=== PATIENT | male | born 1990 | race Caucasian/White ===

== ENCOUNTER → 2016-08-05 | Outpatient (CLI) | payer BC ==
[~2016-08-05] MED LIST: ONDA4TAB7 SL
--- NOTE | 2016-08-05 16:28 | DIAGNOSTIC IMAGING REPORT ---
NECK ULTRASOUND CLINICAL HISTORY: Lymphadenopathy. COMPARISON STUDY: None TECHNIQUE: Sonography of the left supraclavicular region at site of palpable abnormalities was performed. FINDINGS: Several left supraclavicular nodules are suggestive of morphologically benign lymph nodes. No enlarged cervical lymph nodes are identified. The largest left supraclavicular node measures 1.5 x 0.2 x 0.8 cm and is elongated and contains a fatty hilum. These likely reflect the palpable abnormality. IMPRESSION: Several benign-appearing left supraclavicular lymph nodes which likely account for the palpable findings. No pathologically enlarged cervical lymph nodes identified. Electronically signed by: Félix Ruiz M.D. 08/05/2016 4:27 PM Dictated Date/Time: 08/05/2016 4:24 PM
== END | disposition home or self-care (01) ==
LOC: C.ULTR 15:52
PROVIDERS: ATTEND Family Medicine
DX: R59.1 Generalized enlarged lymph nodes (principal)